=== PATIENT | male | born 1985 | race Caucasian/White ===

== ENCOUNTER 2017-06-02 09:00 | Outpatient (RCR) | payer OTHER | END 2017-06-04 | disposition home or self-care (01) | LOC: PTY 09:00 | DX: M54.12 Radiculopathy, cervical region (principal) ==

== ENCOUNTER 2017-06-08 09:00 | Outpatient (RCR) | payer OTHER | END 2017-07-05 | disposition home or self-care (01) | LOC: PTY 09:00 | DX: M54.12 Radiculopathy, cervical region (principal) ==